=== PATIENT | female | born 1960 | race Caucasian/White ===

== ENCOUNTER 2016-11-05 00:47 | Day surgery (SDC) | payer OTHER ==
[~2016-11-05] VITALS: Ht 165.1 cm; Wt 85.3 kg
[~2016-11-05 00:47] MED LIST: ASPI-973 PO; CYAN500 PO; KETO120S3 TP; PARO20TA5 PO; THYR32.57 PO; TRAZ-115 PO; VITA1TAB PO; [UNRECOGNIZED DRUG - OTHER] PO
[2016-11-05] MEDS ORDERED: Sodium Chloride LOK Flush 10 mL Syringe IV PRN (06:00)
[2016-11-05] MEDS ORDERED: fentaNYL-PF 50 mCg/mL 2 mL Inj IVPUSH PRN (06:00)
[2016-11-05 13:26] VITALS: BP 124/63; PULSE 60; RESP 16; O2SAT 99
[2016-11-05] MEDS: 0.9% Sodium Chloride 1,000 ML IV SCH ×4 (13:32→14:47)
--- NOTE | 2016-11-05 14:52 | PCM.ENDCOL ---
Colonoscopy Date of Service: Nov 05, 2016 Physician Alberto Shaw MD Pre Procedure Diagnosis: Screening Post Procedure Dx & Findings: Hemorrhoids Procedure Colonoscopy PROCEDURE IN DETAIL: Prep adequate Withdrawal time 14 minutes After unremarkable rectal examination the Olympus video colonoscope was inserted patient's anal canal and was advanced to cecum. Landmarks were identified including the ileocecal valve and appendiceal orifice. Scope was withdrawn systematically. Visualized colonic mucosa showed healthy shiny mucosa with normal healthy-appearing vasculature. In the rectum retroflexion was done which showed hemorrhoids. Anal canal was inspected carefully on the way out and hemorrhoids noted. Impression Hemorrhoids Recommendation Repeat colonoscopy in 10 years Presedation Assessment Risks and Benefits Informed consent was obtained from the patient after all risks and benefits including but not limited to drug reaction, infection, pain, bleeding, perforation, as well as alternatives were discussed. Patient monitoring Continuous pulse oximetry, cardiac monitoring, blood pressure monitoring, IV access, and oxygen at 2L per nasal cannula. Periprocedural Fentanyl: Fentanyl 100mcg Incrementally Midazolam: Midazolam 6mg Incrementally Complications There were no periprocedural complications identified. Post Procedure Plan Post Procedure Recommendations 1. Restrict activities today. 2. Resume normal activities in the morning. 3. Resume medications. 4. Patient informed of normal post procedure side effects as bloating, drowsiness, blood streaking in the stool. 5. average risk CRCS. If colon polyps come back as: -Hyperplastic- can repeat colonoscopy in 10 years -Tubular adenoma- repeat colonoscopy in 5 years -Tubulovillous/villous adenoma- repeat colonoscopy in 3 years -If any dysplasia- return to clinic as soon as possible 6. Please don't hesitate to call me with any questions. Alberto Shaw MD Nov 05, 2016 14:52
[2016-11-05 14:55] VITALS: BP 114/61; PULSE 63; RESP 16; O2SAT 100
[2016-11-05 15:05] VITALS: BP 97/65; PULSE 59; RESP 16; O2SAT 100
[2016-11-05 15:15] VITALS: BP 84/65; PULSE 61; RESP 16; O2SAT 94
[2016-11-05 15:25] VITALS: BP 108/63; PULSE 65; RESP 16; O2SAT 99
== END 2016-11-05 23:59 | disposition home or self-care (01) ==
LOC: END 00:47
PROVIDERS: ATTEND Internal Medicine
DX: Z12.11 Encounter for screening for malignant neoplasm of colon (principal); K64.9 Unspecified hemorrhoids
CPT/HCPCS: 99153; G0121; G0500; J7030